=== PATIENT | female | born 1975 | race Two or more races ===

== ENCOUNTER 2017-06-06 20:52 | Emergency (ER) | payer OTHER ==
[~2017-06-06] VITALS: Ht 157.5 cm; Wt 79.4 kg
[2017-06-06] MEDS ORDERED: NKM (21:16)
[2017-06-06] MEDS ORDERED: Tetanus/Diptheria/Pertussis Vaccine 0.5ml Syr IM ONE (21:45)
[2017-06-06 22:28] LABS: BASOPHILS % (AUTO) 1.6 % (0.0-2.0); EOSINOPHILS % (AUTO) 2.2 % (0.0-3.0); LYMPHOCYTES % (AUTO) 39.4 % (20.0-45.0); MEAN CORPUSCULAR HEMOGLOBIN 29.2 PG (27.0-31.0); MEAN CORPUSCULAR HGB CONC 33.8 G/DL (32.0-36.0); MEAN CORPUSCULAR VOLUME 86 FL (80-99); MEAN PLATELET VOLUME 10.1 FL (6.5-10.1); MONOCYTES % (AUTO) 5.3 % (1.0-10.0); NEUTROPHILS % (AUTO) 51.5 % (45.0-75.0); PLATELET COUNT 190 K/UL (150-450); RED BLOOD COUNT 4.42 M/UL (4.20-5.40); RED CELL DISTRIBUTION WIDTH 17.7 % (11.6-14.8)
[2017-06-06 22:47] LABS: ALANINE AMINOTRANSFERASE 44 U/L (3-33); ALBUMIN/GLOBULIN RATIO 1.7 (1.0-2.7); AMYLASE 58 U/L (10-110); ANION GAP 10 (5-15); ASPARTATE AMINO TRANSFERASE 35 U/L (5-40); BILIRUBIN,DIRECT 0.1 mg/dL (0.1-0.3); CALCIUM 9.6 mg/dL (8.6-10.2); CARBON DIOXIDE 27 mEQ/L (20-30); CHLORIDE 98 mEQ/L (98-107); CREATININE 0.8 mg/dL (0.5-0.9); GLOMERULAR FILTRATION RATE > 60 mL/min (>60); HEMOLYSIS 7; POTASSIUM 3.3 mEQ/L (3.4-4.9); SODIUM 135 mEQ/L (135-145); TOTAL PROTEIN 7.4 g/dL (6.6-8.7)
[2017-06-06] MEDS ORDERED: TRUVADA1 TAB ORAL (23:10)
[2017-06-06] MEDS ORDERED: ISENTRESS400 MG ORAL (23:10)
[2017-06-06] MEDS ORDERED: Isentress 400mg tab ORAL ONE (23:22)
--- NOTE | 2017-06-06 23:29 | Emergency Room Report ---
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 accidental needlestick from trays of food Saw her own blood from thumb but "not much." Unknown source patient She said staff more concerned about hepatitis than HIV from patient, but again, she is unsure on source patient's HIV status She does not know her current HIV status Denies known PMHx, medications Feels well otherwise Last tetanus >20 years ago Allergies: Coded Allergies: No Known Allergies (Unverified , 06/06/17) Patient History Past Medical History: none Past Surgical History: none Pertinent Family History: none Social History: Denies: alcohol use, drug use, smoking Last Menstrual Period: May Now: No Immunizations: UTD Reviewed Nursing Documentation: PMH: Agreed, PSxH: Agreed Nursing Documentation-PMH Past Medical History: No Stated History Review of Systems All Other Systems: negative except mentioned in HPI Physical Exam Vital Signs Date Time Temp Pulse Resp B/P Pulse Ox O2 Delivery O2 Flow Rate FiO2 06/06/17 21:10 98.1 75 16 145/85 97 Room Air Sp02 EP Interpretation: reviewed, normal General Appearance: normal inspection, well appearing, no apparent distress, alert Head: normocephalic, atraumatic ENT: normal ENT inspection, hearing grossly normal, normal voice Neck: normal inspection, full range of motion, supple, no bony tend Respiratory: normal inspection, lungs clear, normal breath sounds, no respiratory distress, no retraction, no wheezing Cardiovascular #1: regular rate, rhythm, no edema Gastrointestinal: normal inspection, normal bowel sounds, non tender, soft, no guarding, no hernia Genitourinary: no CVA tenderness Musculoskeletal: other - Left thumb, palmar aspect; very small puncture wound, almost invisible. No active bleeding. No sign of infection Neurologic: normal inspection, alert, oriented x3, responsive, senior web designer III-XII nml as tested, motor strength/tone normal, speech normal Psychiatric: normal inspection, judgement/insight normal, mood/affect normal Skin: normal inspection, normal color, no rash Medical Decision Making Diagnostic Impression: Primary Impression: Puncture wound Additional Impressions: Needlestick injury accident with exposure to body fluid Needlestick injury of finger of left hand Qualified Codes: S61.239A - Puncture wound without foreign body of unspecified finger without damage to nail, initial encounter; W27.3XXA - Contact with needle (sewing), initial encounter ER Course Baseline labs sent Hepatitis labs in progress HIV negative Mild LFT elevation Urine preg negative Given unknown source patient HIV status initial Isentress/Truvada dose given in ED Rx for both for 1 month provided Told to call ER for results of hepatitis labs Told to call insurance for PMD referral DC home Last Vital Signs Date Time Temp Pulse Resp B/P Pulse Ox O2 Delivery O2 Flow Rate FiO2 06/06/17 21:10 98.1 75 16 145/85 97 Room Air Status: improved Disposition: HOME, SELF-CARE Condition: Improved Scripts Emtricitabine/Tenofovir (Truvada 200 mg-300 mg Tablet) 1 Each Tablet 1 TAB ORAL DAILY for 30 Days, #30 TAB Prov: DARCIE BISWAS M.D. 06/06/17 Raltegravir (Isentress) 400 Mg Tablet 400 MG ORAL EVERY 12 HOURS for 30 Days, #60 TAB Prov: DARCIE BISWAS M.D. 06/06/17 Patient Instructions: Body Fluid Exposure Information, Puncture Wound Additional Instructions: - Take medications to prevent possible tranmission of HIV - Call the ER in 3-4 days to find out result of Hepatitis panel - [phone] - Ask your insurance to refer you to primary care doctor for followup DARCIE BISWAS M.D. Jun 06, 2017 23:29
[2017-06-06 23:31] VITALS: BP 122/68
[2017-06-07] MEDS ORDERED: Isentress 400mg tab ORAL SCH (09:00)
== END 2017-06-06 23:37 | disposition home or self-care (01) ==
LOC: EMR 21:20
DX: S61.032A Puncture wound without foreign body of left thumb without damage to nail, initial encounter (principal); W46.0XXA Contact with hypodermic needle, initial encounter; Y92.129 Unspecified place in nursing home as the place of occurrence of the external cause; Y99.0 Civilian activity done for income or pay; Z23 Encounter for immunization
CPT/HCPCS: 36415; 80053; 81025; 82150; 82248; 85025; 86703; 86803; 87517; 90471; 90715; 96372; 99284